=== PATIENT | male | born 1995 | race Caucasian/White ===

== ENCOUNTER 2024-03-12 22:13 | Outpatient (CLI) | payer OTHER ==
--- NOTE | 2024-03-13 08:43 | Ultrasound Report ---
PROCEDURE: Duplex Ext Veins Right INDICATIONS: EDEMA TECHNIQUE: Real-time imaging, as well as color and pulse Doppler interrogation, were performed of the lower extr emity deep veins from the inguinal ligament to the popliteal fossa. Attempted visualization of the ca lf veins was performed. COMPARISON: None. FINDINGS: The deep veins are normally compressible, and free of intraluminal thrombus. Color and pu lse Doppler demonstrate normal phasic intraluminal flow. There is normal augmentation response to di stal compression maneuver. IMPRESSION: No deep venous thrombosis of the visualized lower extremity. Reviewed by: Jamaal Shelton MD on 03/13/2024 8:42 AM PDT Approved by: Jamaal Shelton MD on 03/13/2024 8:42 AM PDT Station ID: [id number]
== END 2024-03-12 22:14 | disposition home or self-care (01) ==
LOC: DI 22:13
PROVIDERS: ATTEND Specialist
DX: R60.0 Localized edema (principal)